=== PATIENT | female | born 1980 | race Caucasian/White ===

== ENCOUNTER → 2016-05-25 | Outpatient (CLI) | payer OTHER, BC ==
[~2016-05-25] MED LIST: AMPH15CA7 PO; LEVO125T4 PO; LXT PO; NAPR1TAB9 PO
== END | disposition home or self-care (01) ==
LOC: C.LAB1850 15:07
PROVIDERS: ATTEND Obstetrics & Gynecology Reproductive Endocrinology
DX: O09.01 Supervision of pregnancy with history of infertility, first trimester (principal)

== ENCOUNTER → 2016-06-12 | Outpatient (CLI) | payer OTHER, BC ==
[2016-06-12 15:15] LABS: THYROID STIMULATING HORMONE 1.08 uIu/ml (0.300-4.500)
== END | disposition home or self-care (01) ==
LOC: C.LAB1850 13:26
PROVIDERS: ATTEND Internal Medicine Endocrinology, Diabetes & Metabolism
DX: E89.0 Postprocedural hypothyroidism (principal)

== ENCOUNTER → 2016-07-30 | Outpatient (CLI) | payer OTHER ==
[2016-07-30 11:30] LABS: THYROID STIMULATING HORMONE 1.2 uIu/ml (0.300-4.500)
== END | disposition home or self-care (01) ==
LOC: C.LAB1850 09:14
PROVIDERS: ATTEND Pediatrics
DX: E89.0 Postprocedural hypothyroidism (principal); C73 Malignant neoplasm of thyroid gland

== ENCOUNTER → 2016-08-27 | Outpatient (CLI) | payer OTHER ==
[~2016-08-27] MED LIST changes: -LEVO125T4 PO; +LEVO125T5 PO
[2016-08-27 15:03] LABS: URINE APPEARANCE CLEAR (CLEAR); URINE BILIRUBIN NEG (NEG); URINE COLOR DK YELLOW; URINE EPITHELIAL CELL AUTO 20-30 /lpf (0-5); URINE NITRITE NEG (NEG); URINE SPECIFIC GRAVITY 1.021 (1.000-1.030); UROBILINOGEN NEG (NEG)
[2016-08-27 15:08] LABS: MANUAL MICROSCOPIC REQUIRED? NO; REVIEW REQ? NO
== END | disposition home or self-care (01) ==
LOC: C.LABSPEC 13:37
PROVIDERS: ATTEND Obstetrics & Gynecology
DX: O09.513 Supervision of elderly primigravida, third trimester (principal)

== ENCOUNTER → 2016-08-27 | Outpatient (CLI) | payer OTHER ==
[2016-08-27 12:42] LABS: HEMATOCRIT 31.6 % (37-47)
[2016-08-27 14:25] LABS: GTGD 50 Grams
== END | disposition home or self-care (01) ==
LOC: C.LAB1850 10:33
PROVIDERS: ATTEND Obstetrics & Gynecology
DX: O09.513 Supervision of elderly primigravida, third trimester (principal)

== ENCOUNTER → 2016-09-03 | Outpatient (CLI) | payer OTHER ==
[2016-09-03 12:43] LABS: THYROID STIMULATING HORMONE 0.336 uIu/ml (0.300-4.500)
== END | disposition home or self-care (01) ==
LOC: C.LAB1850 09:59
PROVIDERS: ATTEND Pediatrics
DX: C73 Malignant neoplasm of thyroid gland (principal); E89.0 Postprocedural hypothyroidism

== ENCOUNTER → 2017-07-19 | Outpatient (CLI) | payer BC | END | disposition home or self-care (01) | LOC: C.LAB1850 09:32 | PROVIDERS: ATTEND Internal Medicine Endocrinology, Diabetes & Metabolism | DX: C73 Malignant neoplasm of thyroid gland (principal); E89.0 Postprocedural hypothyroidism ==

== ENCOUNTER → 2017-07-25 | Outpatient (CLI) | payer BC | END | disposition home or self-care (01) | LOC: C.LAB1850 15:25 | PROVIDERS: ATTEND Obstetrics & Gynecology | DX: Z32.00 Encounter for pregnancy test, result unknown (principal) ==

== ENCOUNTER → 2017-08-16 | Outpatient (CLI) | payer BC | END | disposition home or self-care (01) | LOC: C.LABSPEC 11:26 | PROVIDERS: ATTEND Obstetrics & Gynecology | DX: O09.521 Supervision of elderly multigravida, first trimester (principal); Z3A.00 Weeks of gestation of pregnancy not specified ==

== ENCOUNTER → 2017-08-23 | Outpatient (CLI) | payer BC ==
[2017-08-23 12:27] LABS: BASO % 0.2 %; BASO ABS # 0.02 K/uL (0-0.2); EOS ABS # 0.08 K/uL (0-0.5); HEMATOCRIT 34.8 % (37-47); HEMOGLOBIN 12.3 g/dL (12.0-16.0); IG# 0.02 K/uL (0.00-0.02); LYMPH % 20.2 %; LYMPH ABS # 1.66 K/uL (1.2-3.4); MEAN CELL VOLUME 91.8 fL (80-100); MEAN CORPUSCULAR HEMOGLOBIN 32.5 pg (25-34); MEAN CORPUSCULAR HGB CONC 35.3 g/dl (32-36); MEAN PLATELET VOLUME 10.5 fL (7.4-10.4); MONO % 6.4 %; MONO ABS # 0.53 K/uL (0.11-0.59); NEUT ABS # 5.92 K/uL (1.4-6.5); PLATELET COUNT 305 K/uL (130-400); RED CELL DISTRIBUTION WIDTH CV 12.8 % (11.5-14.5); WHITE BLOOD COUNT 8.23 K/uL (4.8-10.8)
== END | disposition home or self-care (01) ==
LOC: C.LAB1850 11:12
PROVIDERS: ATTEND Obstetrics & Gynecology
DX: E89.0 Postprocedural hypothyroidism (principal); O09.521 Supervision of elderly multigravida, first trimester

== ENCOUNTER → 2017-08-23 | Outpatient (CLI) | payer BC | END | disposition home or self-care (01) | LOC: C.LABSPEC 13:53 | PROVIDERS: ATTEND Obstetrics & Gynecology | DX: O09.521 Supervision of elderly multigravida, first trimester (principal) ==

== ENCOUNTER → 2017-08-23 | Outpatient (CLI) | payer BC | END | disposition home or self-care (01) | LOC: C.PAPS 14:49 | PROVIDERS: ATTEND Obstetrics & Gynecology | DX: Z12.4 Encounter for screening for malignant neoplasm of cervix (principal); R87.610 Atypical squamous cells of undetermined significance on cytologic smear of cervix (ASC-US) ==

== ENCOUNTER → 2017-10-09 | Outpatient (CLI) | payer BC | END | disposition home or self-care (01) | LOC: C.LAB1850 09:30 | PROVIDERS: ATTEND Obstetrics & Gynecology | DX: O09.522 Supervision of elderly multigravida, second trimester (principal) ==

== ENCOUNTER → 2018-01-06 | Outpatient (CLI) | payer BC ==
[2018-01-06 15:58] LABS: HEMATOCRIT 33.8 % (37-47); HEMOGLOBIN 11.3 g/dL (12.0-16.0)
== END | disposition home or self-care (01) ==
LOC: C.LAB1850 14:57
PROVIDERS: ATTEND Obstetrics & Gynecology
DX: O09.523 Supervision of elderly multigravida, third trimester (principal); Z3A.00 Weeks of gestation of pregnancy not specified